=== PATIENT | male | born 1995 | race American Indian/Alaskan Native ===

== ENCOUNTER 2022-01-09 13:20 | Emergency (ER) | payer SELFPAY ==
[2022-01-09 14:03] VITALS: BP 112/76
== END 2022-01-09 20:45 | disposition left against medical advice (07) ==
LOC: ED 13:20
DX: R07.9 Chest pain, unspecified (principal); R05.9 Cough, unspecified; R68.83 Chills (without fever); Z53.21 Procedure and treatment not carried out due to patient leaving prior to being seen by health care provider